=== PATIENT | male | born 1955 | race African-American/Black ===

== ENCOUNTER 2017-02-03 09:07 | Outpatient (CLI) | payer BC, OTHER ==
[2017-02-03] MEDS ORDERED: PROVENTIL IH ONE (10:13)
== END 2017-02-03 09:08 | disposition home or self-care (01) ==
LOC: PF 09:07
PROVIDERS: ATTEND Internal Medicine
DX: J44.9 Chronic obstructive pulmonary disease, unspecified (principal); M51.36 Other intervertebral disc degeneration, lumbar region; M51.26 Other intervertebral disc displacement, lumbar region; Z87.891 Personal history of nicotine dependence
CPT/HCPCS: 94060; 94640; 94729